=== PATIENT | male | born 2000 | race Two or more races ===

== ENCOUNTER 2019-02-21 11:32 | Emergency (ER) | payer OTHER ==
[~2019-02-21] VITALS: Ht 160 cm; Wt 69.4 kg
[2019-02-21 11:32] VITALS: BP 144/59
== END 2019-02-21 13:14 ==
LOC: ER 11:35
DX: M25.512 Pain in left shoulder (principal); R07.81 Pleurodynia; F12.10 Cannabis abuse, uncomplicated; Z02.89 Encounter for other administrative examinations
CPT/HCPCS: 71100-TC; 73030-TC